=== PATIENT | female | born 1965 | race Caucasian/White ===

== ENCOUNTER 2020-12-22 16:14 | Outpatient (REF) | payer OTHER, SELFPAY ==
--- NOTE | 2020-12-22 | MM_ITS ---
EXAMINATION: MM SCREENING DIGITAL BREAST TOMOSYNTHESIS, BILATERAL CLINICAL INFORMATION: Screening. Asymptomatic. The lifetime risk of breast cancer based on the Tyrer-Cuzick Model is 12%. COMPARISON: Mammography: 12/17/2019, 11/05/2018, 11/14/2017 TECHNIQUE: Digital breast tomosynthesis is performed in both the craniocaudal and mediolateral oblique views along with computer-aided detection (CAD). Synthesized 2D images are generated from the tomosynthesis. FINDINGS: There are scattered areas of fibroglandular density (ACR BI-RADS breast composition Category b). There are no significant masses, abnormal calcifications, or other abnormalities. Parenchymal pattern is similar to prior studies. The axillary and skin contours are unremarkable. There is no developing density. MM/MM tomosynthesis screening BI IMPRESSION: No mammographic evidence of malignancy. ASSESSMENT: BI-RADS 1: Negative RECOMMENDATION: Routine annual mammography screening. This patient's information was entered into a reminder system with a target due date for their next mammogram.
== END 2020-12-22 16:15 | disposition home or self-care (01) ==
LOC: HO.MAMMO 16:14
PROVIDERS: PCP Internal Medicine; Visit Provider Internal Medicine
DX: Z12.31 Encounter for screening mammogram for malignant neoplasm of breast (principal)
CPT/HCPCS: 77063; 77067

== ENCOUNTER 2021-12-23 16:15 | Outpatient (REF) | payer OTHER, SELFPAY ==
--- NOTE | ~2021-12-23 | MM_ITS ---
EXAMINATION: MM SCREENING DIGITAL BREAST TOMOSYNTHESIS, BILATERAL CLINICAL INFORMATION: Screening. Asymptomatic. The lifetime risk of breast cancer based on the Tyrer-Cuzick Model is 10.6%. COMPARISON: Mammography: December 22, 2020 and studies dating back to September 10, 2014 TECHNIQUE: Digital breast tomosynthesis is performed in both the craniocaudal and mediolateral oblique views along with computer-aided detection (CAD). Synthesized 2D images are generated from the tomosynthesis. FINDINGS: The breasts are almost entirely fatty (ACR BI-RADS breast composition Category a). There are no significant masses, abnormal calcifications, or other abnormalities. MM/MM tomosynthesis screening BI IMPRESSION: There are no significant changes from prior study. ASSESSMENT: BI-RADS 1: Negative RECOMMENDATION: Routine annual mammography screening. This patient's information was entered into a reminder system with a target due date for their next mammogram.
== END 2021-12-23 16:16 | disposition home or self-care (01) ==
LOC: HO.MAMMO 16:15
PROVIDERS: PCP Internal Medicine; Visit Provider Internal Medicine
DX: Z12.31 Encounter for screening mammogram for malignant neoplasm of breast (principal)
CPT/HCPCS: 77063; 77067

== ENCOUNTER 2022-12-26 16:29 | Outpatient (REF) | payer OTHER, SELFPAY ==
--- NOTE | ~2022-12-26 | MM_ITS ---
EXAMINATION: MM SCREENING DIGITAL BREAST TOMOSYNTHESIS, BILATERAL CLINICAL INFORMATION: Screening. Asymptomatic. The lifetime risk of breast cancer based on the Tyrer-Cuzick Model is 11%. COMPARISON: Mammography: 12/23/2021, 12/22/2020, 12/17/2019 TECHNIQUE: Digital breast tomosynthesis is performed in both the craniocaudal and mediolateral oblique views along with computer-aided detection (CAD). Synthesized 2D images are generated from the tomosynthesis. FINDINGS: There are scattered areas of fibroglandular density (ACR BI-RADS breast composition Category b). There are no significant masses, abnormal calcifications, or other abnormalities. Parenchymal pattern is similar to prior studies. There is no developing density or architectural abnormality. The axilla and skin contours are unremarkable. No significant changes. MM/MM tomosynthesis screening BI IMPRESSION: No mammographic evidence of malignancy. ASSESSMENT: BI-RADS 1: Negative RECOMMENDATION: Routine annual mammography screening. This patient's information was entered into a reminder system with a target due date for their next mammogram.
== END 2022-12-26 16:30 | disposition home or self-care (01) ==
LOC: HO.MAMMO 16:29
PROVIDERS: Visit Provider Internal Medicine
DX: Z12.31 Encounter for screening mammogram for malignant neoplasm of breast (principal)
CPT/HCPCS: 77063; 77067

== ENCOUNTER 2024-01-03 13:40 | Outpatient (REF) | payer OTHER, SELFPAY | END 2024-01-03 13:41 | disposition home or self-care (01) | LOC: HO.MAMMO 13:40 | PROVIDERS: PCP Internal Medicine; Visit Provider Student in an Organized Health Care Education/Training Program | DX: Z12.31 Encounter for screening mammogram for malignant neoplasm of breast (principal) | CPT/HCPCS: 77063; 77067 ==

== ENCOUNTER → 2024-01-03 13:45 | Outpatient (BNV) | payer OTHER, SELFPAY | PROVIDERS: PCP Internal Medicine; Visit Provider Radiology Diagnostic Radiology | DX: Z12.31 Encounter for screening mammogram for malignant neoplasm of breast (principal) | CPT/HCPCS: 77063; 77067 ==

== ENCOUNTER 2024-05-28 17:23 | Emergency (ER) | payer OTHER, SELFPAY ==
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
[2024-05-28 17:27] VITALS: BP 160/100; PULSE 115; O2SAT 98
[2024-05-28 17:35] VITALS: BP 154/94; PULSE 91; RESP 16; TEMP 36.6; O2SAT 97; BMI 32.9
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
[2024-05-28] MEDS: Ketorolac Tromethamine 30 MG/ML VIAL IM (18:13)
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
[2024-05-28 19:53] VITALS: BP 138/90; PULSE 70; RESP 20; TEMP 36.9; O2SAT 99
[2024-05-28 19:54] VITALS: BP 138/90; PULSE 70; RESP 20; TEMP 36.9; O2SAT 99
== END 2024-05-28 19:55 | disposition home or self-care (01) ==
PROVIDERS: Emergency Provider Emergency Medicine; PCP Student in an Organized Health Care Education/Training Program
DX: S40.012A Contusion of left shoulder, initial encounter (principal); S40.011A Contusion of right shoulder, initial encounter; V43.52XA Car driver injured in collision with other type car in traffic accident, initial encounter; W22.12XA Striking against or struck by front passenger side automobile airbag, initial encounter; Y93.9 Activity, unspecified; Y92.410 Unspecified street and highway as the place of occurrence of the external cause; Y99.9 Unspecified external cause status; M54.9 Dorsalgia, unspecified; I10 Essential (primary) hypertension; K21.9 Gastro-esophageal reflux disease without esophagitis
CPT/HCPCS: 71045; 73502; 93005; 96372; 99284; 99285; J1885

== ENCOUNTER → 2024-05-28 17:38 | Outpatient (BNV) | payer OTHER, SELFPAY | PROVIDERS: Emergency Provider Emergency Medicine; PCP Student in an Organized Health Care Education/Training Program; Visit Provider Internal Medicine | DX: R94.31 Abnormal electrocardiogram [ECG] [EKG] (principal); R07.9 Chest pain, unspecified | CPT/HCPCS: 93010 ==

== ENCOUNTER 2025-01-16 13:26 | Outpatient (REF) | payer OTHER, SELFPAY ==
--- OUTSIDE RECORDS SUMMARY | 2025-01-16 14:25 | XMS_ITS ---
Author Organization [employer] [facility] Address [address] [place] [address] Care Team Providers Care Lawyer Probate Name Role Phone JERMAINE VERGARA Primary Care Provider QASIM Amador Unavailable [phone] REASON FOR VISIT Annual POLYGRAPH EXAMINER Physical Encounters Encounter Location Date Provider Diagnosis [facility] [address] [place] [address] 09/29/2023 QASIM CESPEDES Plan Of Treatment Next Appt Details Provider Name:QASIM Tran, 11/11/2025 03:30:00 PM, [address], [address], [place], [address], Progress Notes * HU CONCEPCIONDOB: [birth year] (60 yo F)Acc No.[id number]:09/29/2023 Progress Note Patient:?JAMEYRICHYYN Provider:?QASIM CESPEDES MD :[id number]???Age:58 Y???Sex:Female D ate:09/29/2023 Address:[address] [place], [place] [id number] Pcp:MICHAEL JACQUES Subjective: * Chief Complaints: * ???1. Annual POLYGRAPH EXAMINER Physical. * Medical History:? Objective: * Vitals:? Assessment: Plan: * Treatment: * Images: Billing Information: * Visit Code:? * Procedure Codes:? * Electronic signature of QASIM CESPEDES MD on 01/16/2025 at 02:25 PM EST Sign off status: Pending * Provider:?QASIM CESPEDES MD Date:?2022 Generated for Ashley cowan/Nile/Virgilio on:?01/16/2025 02:25 PM EST
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
--- OUTSIDE RECORDS SUMMARY | 2025-01-16 14:26 | XMS_ITS | Patient Health Record ---
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 Name Role Phone JERMAINE VERGARA Primary Care Provider QASIM Amador Unavailable [phone] Allergies No Known Allergies Reason For Referral No Information Medications Medication SIG (Take, Route, Fr equency, Duration) Notes Start Date End Date Status Omeprazole 20 MG Oral for 30 A ctive hydrOXYzine HCl 10 MG TAKE 1 TABLET BY M OUTH DAILY NEEDED FOR ANXIETY Oral for 30 Active Valsartan 160 MG TAKE 1 TABLET BY DENIZ TH DAILY Oral for 30 Active Social History Tobacco [...] W/U Status Risk Notes Problem Essential hypertension (95379518) Essential (primary) hypertension (I10) Active confirmed Problem Basal cell carcinoma of face (702591507) Basal cell carcinoma of skin of other parts of face (C44.319) Active confirmed Problem Squamous cell carcinoma of skin (564254015) Squamous cell carcinoma of skin of other parts of face (C44.329) Active confirmed Problem Basal cell carcinoma of truncal skin (050464738) Basal cell carcinoma of skin of other part of trunk (C44.519) Active confirmed Problem Malignant neoplasm of skin (252437621) Unspecified malignant neoplasm of skin, unspecified (C44.90) Active confirmed Problem Anxiety disorder (968015174) Anxiety disorder, unspecified (F41.9) Active confirmed Problem Gastro-esophagea l reflux disease without esophagitis (325069735) Gastro-esophagea l reflux disease without esophagitis (K21.9) Active confirmed Problem COVID-19 (766439037) COVID-19 (U07.1) Active confirmed Vital Signs Temperature 97.0 degrees Fahrenheit 11/05/2024 Blood pressure diastolic 70 mm Hg 11/05/2024 Height 67 in 11/05/2024 Blood pressure systolic 114 mm Hg 11/05/2024 Weight 209 lbs 11/05/2024 BMI 32.73 kg/m2 11/05/2024 Encounters Encounter Location Date Provider Diagnosis [address] [place] [address] 11/05/2024 QASIM CESPEDES Encounter for gynecological examination (general) (routine) without abnormal findings Z01.419 and Encounter for screening mammogram for malignant neoplasm of breast Z12.31 Assessments Encounter Date Diagnosis (ICD Code) Assessment Notes Treatment Notes Treatment Clinical Notes Section Notes 11/05/2024 Encounter for gynecological examination (general) (routine) without [...] to keep colon screening up to date. 11/05/2024 Encounter for screening mammogram for malignant neoplasm of breast (ICD-10 - Z12.31) Plan Of Treatment Pending Test Test Name Order Date MM Digital Screening Mammogram 3D 2022 MM Digital Screening Mammogram 3D 2023 Next Appt Details Provider Name:QASIM Tran, 11/11/2025 03:30:00 PM, [address] [facility], [address], [place], [address], Insurance Providers Payer Name Payer Address Payer Phone Subscriber Number Group Number Insured Name Patient Relationship to Insured Coverage Start Date Coverage End Date [facility] [address] [place] [address] [phone] [id number] HU CONCEPCION Self - patient is the insured Medical (General) History Medical History History ICD Code Essential (primary) hypertension I10 COVID-19 U07.1 Anxiety disorder, unspecified F41.9 Gastro-esophageal reflux disease without esophagitis K21.9 Basal cell carcinoma of skin of other pa rts of face C44.319 Basal cell carcinoma of skin of other pa rt of trunk C44.519 Squamous cell carcinoma of skin of other parts of face C44.329 Surgical History Surgery Date(Month/Year) Appendectomy 02/2012 Hospitalization History Reason Date(Month/Year) See Surgical HX
== END 2025-01-16 13:27 | disposition home or self-care (01) ==
LOC: HO.MAMMO 13:26
PROVIDERS: Absent Provider Obstetrics & Gynecology; PCP Student in an Organized Health Care Education/Training Program; Visit Provider Student in an Organized Health Care Education/Training Program
DX: Z12.31 Encounter for screening mammogram for malignant neoplasm of breast (principal)
CPT/HCPCS: 77063; 77067

== ENCOUNTER → 2025-01-16 13:30 | Outpatient (BNV) | payer OTHER, SELFPAY | PROVIDERS: Absent Provider Obstetrics & Gynecology; PCP Student in an Organized Health Care Education/Training Program; Visit Provider Internal Medicine | DX: Z12.31 Encounter for screening mammogram for malignant neoplasm of breast (principal) | CPT/HCPCS: 77063; 77067 ==

== ENCOUNTER 2025-02-03 13:57 | Emergency (ER) | payer OTHER, SELFPAY ==
--- NOTE | ~2025-02-03 | CT_ITS ---
EXAMINATION: CT HEAD WITHOUT CONTRAST CLINICAL INFORMATION: dizziness COMPARISON: None available. TECHNIQUE: Contiguous axial imaging was performed from the skull base to vertex without intravenous administration of contrast. This CT examination was performed using dose optimization techniques as appropriate, variously including the following: *Automated exposure control *Adjustment of mA and/or kV according to patient size (this includes techniques or standardized protocols for targeted exams where dose is matched to indication/reason for exam; i.e. extremities or head) *Use of iterative reconstruction technique DLP: 661 mGy-cm FINDINGS: Bony calvarium is intact. Skull base is intact. No acute intracranial hemorrhage, mass effect, midline shift, hydrocephalus or herniation. Kaur-white matter differentiation is normal. Sellar/suprasellar region demonstrated no gross masses or hemorrhage. Posterior cranial fossa contents demonstrated no acute intracranial hemorrhage or mass effect. No air-fluid levels in the paranasal sinuses. Tympanic cavities and mastoid cells are aerated. Pneumatized left petrous apex, congenital. No gross masses or hemorrhage in the intraconal or extraconal compartments of the orbits. CT/CT head/brain wo IV con IMPRESSION: No acute intracranial hemorrhage or acute brain abnormality by CT. Electronically signed by: Yuval Menard MD 02/03/2025 03:12 PM EDT
[2025-02-03 14:03] VITALS: BP 146/98; PULSE 76; RESP 18; TEMP 36.1; O2SAT 97; BMI 32.5
--- NOTE | 2025-02-03 14:12 | ED_ITS ---
HPI - Dizziness General Chief Complaint: Dizziness Stated Complaint: dizzniess block head block ear pcp quest stroke Related Data Allergies Allergy/AdvReac Type Severity Reaction Status Date / Time No Known Allergies Allergy Verified 02/03/25 14:05 [facility] Social History Social History Unable to assess alcohol history related to: Unknown Advance Directives: No Advance Directives Information Provided: No Do you have a plan to hurt others: No Plan Physical Exam 2 Vital Signs: Vital Signs: Last Vital Signs Temp 97 F 02/03/25 14:03 Pulse 76 02/03/25 14:03 Resp 18 02/03/25 14:03 BP 146/98 H 02/03/25 14:03 Pulse Ox 97 02/03/25 14:03 O2 Del Method Room Air 02/03/25 14:03 BMI result Body Mass Index 32.5 Course Course Course Narrative: This is a Rapid Medical Examination (RME) performed by Kevin Marlow PA-C in triage. Full HPI, ROS, assessment and treatment plan per primary provider in the Main ED. 60 yo female here for eval of dizziness (room spinning sensation), sore throat, chills, head congestion, nasal congestion and right ear congestion x2 days. called PCP who advised to come to the ED d/t concern for stroke. no hx VTE. not on AC. dizziness exacerbated w/ head movements. no difficulty walking. recent trip to [place] - felt under the weather on returning home. admits to similar dizzy spells when she had the flu. + well appearing. NIH 0 at 1410 - exam nonfocal. normal finger to nose/ heel to erwin, rapid mvmts hand intact, ambulating w/ steady gait. Plan: labs, viral swabs, ekg, ct head Reevaluation(s) Reevaluation #1: Patient left the emergency department before myself or any of the other clinicians could review or explain physical exam findings, test results, need or lack there of for additional testing, treatment options, or a treatment plan. Medical Decision Making Lab Data 02/03/25 14:51 02/03/25 14:51 Labs: Lab Results 02/03/25 Range/Units 14:51 WBC 7.7 (4.8-10.8) X10*3/uL RBC 4.77 (4.20-5.50) X10*6/uL Hgb 14.3 (12.0-16.0) g/dl Hct 42.9 (37.0-47.0) % MCV 89.9 (80.0-98.0) fL MCH 30.0 (27.0-33.0) pg MCHC 33.3 (31.0-35.0) g/dl RDW 13.5 (11.0-16.0) % Plt Count 274 (160-400) X10*3/uL MPV 9.2 L (9.4-12.3) fL Immature Gran % (Auto) 0.3 (0.0-0.4) % Neut % (Auto) 69.9 (45-73) % Lymph % (Auto) 23.7 (20-40) % Woodward % (Auto) 4.8 (2-11) % Eos % (Auto) 0.9 (0-4) % Baso % (Auto) 0.4 (0-2) % Lymph # (Auto) 1.8 (1.2-4.9) X10*3/uL Woodward # (Auto) 0.4 (0.1-1.2) X10*3/uL Eos # (Auto) 0.1 (0.0-0.4) X10*3/uL Baso # (Auto) 0.0 (0.0-0.2) X10*3/uL Abs Immat Gran (auto) 0.02 (0.00-0.03) X10*3/uL Absolute Neuts (auto) 5.4 (2.0-8.3) x10*3/uL Absolute Nucleated RBC 0.000 (0.0-0.012) X10*3/uL Nucleated RBC % (auto) 0.0 (0.0-0.2) /100WBC Sodium 143 (135-145) mmol/L Potassium 3.8 (3.3-5.1) mmol/L Chloride 111 H (96-108) mmol/L Carbon Dioxide 24 (22-29) mmol/L Anion Gap 12 (12-20) BUN 9 (9-16) mg/dL Creatinine 0.85 (0.5-1.4) mg/dL Estim Creat Clear Calc 84.9 Estimated GFR > 60 Random Glucose 92 (60-115) mg/dL Calcium 9.3 (8.4-10.2) mg/dL Magnesium 2.1 (1.6-2.6) mg/dL Total Bilirubin 0.9 (0.0-1.0) mg/dL AST 20 (5-31) U/L ALT 16 (0-31) U/L Alkaline Phosphatase 109 (39-117) U/L Troponin I High Sens < 2.7 (<3.5-17.0) ng/L Total Protein 7.6 (6.5-8.0) g/dL Albumin 4.1 (3.5-5.0) g/dL Influenza Type A (PCR) NEGATIVE (Negative) Influenza Type B (PCR) NEGATIVE (Negative) RSV RNA Qual (PCR) NEGATIVE (Negative) SARS-CoV-2 RNA (RT-PCR) NEGATIVE (Negative) S. pyogenes GrpA DEVYN Negative (Negative) Discharge Plan Discharge Clinical Impression: Dizziness Patient Disposition: Left W/O Completing Treatment Discharge Date/Time: 02/03/25 21:52
--- NOTE | 2025-02-03 14:13 | ECG_ITS ---
Test Reason : DIZZINESS Blood Pressure : */* mmHG Vent. Rate : 66 BPM Atrial Rate : 66 BPM P-R Int : 146 ms QRS Dur : 80 ms QT Int : 392 ms P-R-T Axes : 36 42 12 degrees QTcB Int : 410 ms Normal sinus rhythm Normal ECG When compared with ECG of 28-May-2024 17:40, No significant change was found Referred By: Ana Marlow Electronically Signed By: BANDAR KITCHEN
[2025-02-03 14:58] LABS: MANUAL DIFF FLAG NO
[2025-02-03 15:00] LABS: Basophils Percent Auto 0.4 % (0-2); Eosinophils Absolute Auto 0.1 X10*3/uL (0.0-0.4); Eosinophils Percent Auto 0.9 % (0-4); Hematocrit 42.9 % (37.0-47.0); Hemoglobin 14.3 g/dl (12.0-16.0); Imm Gran Abs Auto 0.02 X10*3/uL (0.00-0.03); Imm Gran Pct Auto 0.3 % (0.0-0.4); Lymphocytes Absolute Auto 1.8 X10*3/uL (1.2-4.9); Lymphocytes Percent Auto 23.7 % (20-40); Mean Corpuscular HGB Conc 33.3 g/dl (31.0-35.0); Mean Corpuscular Volume 89.9 fL (80.0-98.0); Mean Platelet Volume 9.2 fL (9.4-12.3); Monocytes Absolute Auto 0.4 X10*3/uL (0.1-1.2); Monocytes Percent Auto 4.8 % (2-11); Neutrophils Absolute Auto 5.4 x10*3/uL (2.0-8.3); Neutrophils Percent Auto 69.9 % (45-73); Platelet Count 274 X10*3/uL (160-400); Red Blood Count 4.77 X10*6/uL (4.20-5.50); Red Cell Distribution Width 13.5 % (11.0-16.0); White Blood Count 7.7 X10*3/uL (4.8-10.8)
[2025-02-03 15:11] LABS: IDNOW Serial# 58CA691E
[2025-02-03 15:12] LABS: Strep A Nucleic Acid Negative (Negative)
[2025-02-03 15:19] LABS: Alanine Aminotransferase 16 U/L (0-31); Albumin Level 4.1 g/dL (3.5-5.0); Alkaline Phosphatase 109 U/L (39-117); Anion Gap 12 (12-20); Aspartate Amino Transferase 20 U/L (5-31); Bilirubin Total 0.9 mg/dL (0.0-1.0); Blood Urea Nitrogen 9 mg/dL (9-16); Calcium 9.3 mg/dL (8.4-10.2); Carbon Dioxide 24 mmol/L (22-29); Chloride 111 mmol/L (96-108); Creatinine Clr Calc Pharmacy 84.9; Estimated Glomerular Filt Rate > 60; Glucose Random 92 mg/dL (60-115); Magnesium 2.1 mg/dL (1.6-2.6); Potassium 3.8 mmol/L (3.3-5.1); Sodium 143 mmol/L (135-145); Total Protein 7.6 g/dL (6.5-8.0)
[2025-02-03 15:23] LABS: Troponin-I High Sensitivity < 2.7 ng/L (<3.5-17.0)
[2025-02-03 15:40] LABS: Influenza A PCR NEGATIVE (Negative); Influenza B PCR NEGATIVE (Negative); Resp Syncy Virus RNA Qual PCR NEGATIVE (Negative); SARS COV2 PCR INHOUSE NEGATIVE (Negative)
--- NOTE | 2025-02-03 21:44 | PC.NURSE ---
NO ANSWER FROM rod AT 21:40
--- OUTSIDE RECORDS SUMMARY | 2025-02-03 21:47 | XMS_ITS ---
Author Organization [employer] Address [address] [place] [address] Care Team Providers Care Cleaning Technician Name Role Phone JERMAINE VERGARA Primary Care Provider QASIM Amador Unavailable [phone] REASON FOR VISIT Annual IMMUNOLOGY SPECIALIST Physical Encounters Encounter Location Date Provider Diagnosis [facility] [address] [place] [address] 09/29/2023 QASIM CESPEDES Plan Of Treatment Next Appt Details Provider Name:QASIM Tran, 11/11/2025 03:30:00 PM, [address], [address], [place], [address], Progress Notes * HU CONCEPCIONDOB: [birth year] (60 yo F)Acc No.[id number]:09/29/2023 Progress Note Patient:?JAMEYRICHYYN Provider:?QASIM CESPEDES MD :1965???Age:58 Y???Sex:Female D ate:09/29/2023 Address:[address] [place], [place] [id number] Pcp:MICHAEL JACQUES Subjective: * Chief Complaints: * ???1. Annual IMMUNOLOGY SPECIALIST Physical. * Medical History:? Objective: * Vitals:? Assessment: Plan: * Treatment: * Images: Billing Information: * Visit Code:? * Procedure Codes:? * Electronic signature of QASIM CESPEDES MD on 02/03/2025 at 09:47 PM EDT Sign off status: Pending * Provider:?QASIM CESPEDES MD Date:?2022 Generated for Ashley cowan/Nile/Virgilio on:?02/03/2025 09:47 PM EDT
--- OUTSIDE RECORDS SUMMARY | 2025-02-03 21:47 | XMS_ITS | Patient Health Record ---
Author Organization [facility] Address [address] [address] Care Team Providers Care Stripper And Printer Name Role Phone JERMAINE VERGARA Primary Care Provider QASIM Amador Unavailable [phone] Allergies No Known Allergies Reason For Referral [...] W/U Status Risk Notes Problem Essential hypertension (73236779) Essential (primary) hypertension (I10) Active confirmed Problem Basal cell carcinoma of face (302154866) Basal cell carcinoma of skin of other parts of face (C44.319) Active confirmed Problem Squamous cell carcinoma of skin (430076490) Squamous cell carcinoma of skin of other parts of face (C44.329) Active confirmed Problem Basal cell carcinoma of truncal skin (261131067) Basal cell carcinoma of skin of other part of trunk (C44.519) Active confirmed Problem Malignant neoplasm of skin (338275132) Unspecified malignant neoplasm of skin, unspecified (C44.90) Active confirmed Problem Anxiety disorder (541206640) Anxiety disorder, unspecified (F41.9) Active confirmed Problem Gastro-esophagea l reflux disease without esophagitis (582889232) Gastro-esophagea l reflux disease without esophagitis (K21.9) Active confirmed Problem COVID-19 (731931465) COVID-19 (U07.1) Active confirmed Vital Signs Temperature 97.0 degrees Fahrenheit 11/05/2024 Blood pressure diastolic 70 mm Hg 11/05/2024 Height 67 in 11/05/2024 Blood pressure systolic 114 mm Hg 11/05/2024 Weight 209 lbs 11/05/2024 BMI 32.73 kg/m2 11/05/2024 Encounters Encounter Location Date Provider Diagnosis [address] [place] [address] 11/05/2024 QASIM CESPEDES Encounter for gynecological examination [...] Provider Name:QASIM Tran, 11/11/2025 03:30:00 PM, [address] [employer] [facility], [address], [place], [address], Insurance Providers Payer Name Payer Address Payer Phone Subscriber Number Group Number Insured Name Patient Relationship to Insured Coverage Start Date Coverage End Date [facility] [address] [place] [address] [id number] HU CONCEPCION Self - patient is the [...]
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
== END 2025-02-03 21:52 | disposition left against medical advice (07) ==
LOC: HO.ED 21:45
PROVIDERS: Physician Assistant Medical; Emergency Provider Emergency Medicine; PCP Student in an Organized Health Care Education/Training Program
DX: R42 Dizziness and giddiness (principal); Z03.818 Encounter for observation for suspected exposure to other biological agents ruled out
CPT/HCPCS: 0241U; 36415; 70450; 80053; 83735; 84484; 85025; 87651; 93005; 99283; 99284

== ENCOUNTER → 2025-02-03 14:06 | Outpatient (BNV) | payer OTHER, SELFPAY | PROVIDERS: PCP Student in an Organized Health Care Education/Training Program; Visit Provider Radiology Diagnostic Radiology | DX: R42 Dizziness and giddiness (principal) | CPT/HCPCS: 70450 ==

== ENCOUNTER → 2025-02-03 14:13 | Outpatient (BNV) | payer OTHER, SELFPAY | PROVIDERS: Emergency Provider Emergency Medicine; PCP Student in an Organized Health Care Education/Training Program; Visit Provider Internal Medicine | DX: R42 Dizziness and giddiness (principal) | CPT/HCPCS: 93010 ==